=== PATIENT | female | born 1975 | race Two or more races ===

== ENCOUNTER 2023-02-25 23:40 | Emergency (ER) | payer MEDICAID, OTHER ==
[~2023-02-25] VITALS: Ht 149.9 cm; Wt 60.0 kg
[2023-02-26] MEDS ORDERED: cloNIDine HCL 0.1 MG TAB PO ONE (00:15)
[2023-02-26] MEDS ORDERED: LABETALOL HCL 5 MG/ML 4ML SYRINGE IV ONE (00:15)
[2023-02-26 02:00] VITALS: BP 125/86; PULSE 82; RESP 20; O2SAT 98
== END 2023-02-26 02:04 | disposition home or self-care (01) ==
LOC: ER 23:40
DX: I10 Essential (primary) hypertension (principal); R07.89 Other chest pain
CPT/HCPCS: 93005